=== PATIENT | male | born 1965 | race Caucasian/White ===

== ENCOUNTER 2017-08-22 07:15 | Emergency (ER) | payer MEDICARE, OTHER, MEDICAID ==
[2017-08-22 07:53] LABS: URINE BLOOD (Dip) POC Negative (NEGATIVE); URINE GLUCOSE (Dip) POC Negative (NEGATIVE); URINE KETONES (Dip) POC Trace (NEGATIVE); URINE LEUKOCYTE EST (Dip) POC Negative (NEGATIVE); URINE NITRITE (Dip) POC Negative (NEGATIVE); URINE TOTAL PROTEIN POC 1+ (NEGATIVE)
[2017-08-22] MEDS ORDERED: LIDOCAINE 2% JEL.PF.APP 5 ML UROJET SYRINGE MM (08:30)
[2017-08-22] MEDS: AZITHROMYCIN 250 MG TAB PO (08:52)
[2017-08-22] MEDS: PENICILLIN G BENZ 2.4 MIL UNIT SYG IM (09:02)
[2017-08-22] MEDS: LIDOCAINE 1% (MDV) 10 ML INJ INJ (09:09)
[2017-08-22] MEDS: CEFTRIAXONE 250 MG INJ IM (09:09)
== END 2017-08-22 09:21 | disposition home or self-care (01) ==
LOC: FTE 07:15
DX: N48.5 Ulcer of penis (principal); F17.210 Nicotine dependence, cigarettes, uncomplicated
CPT/HCPCS: 81003; 96372; 99284-25

== ENCOUNTER 2018-07-11 16:59 | Emergency (ER) | payer MEDICARE, OTHER ==
[2018-07-11] MEDS: HYDROCODONE/APAP (5/325) TAB PO (17:28)
[2018-07-11] MEDS: KETOROLAC 30 MG INJ IM (17:28)
== END 2018-07-11 18:34 | disposition home or self-care (01) ==
LOC: FTE 18:34
DX: S59.901A Unspecified injury of right elbow, initial encounter (principal); X50.3XXA Overexertion from repetitive movements, initial encounter; Y92.9 Unspecified place or not applicable; Z87.891 Personal history of nicotine dependence
CPT/HCPCS: 96372; 99284-25